=== PATIENT | male | born 1985 | race Caucasian/White ===

== ENCOUNTER 2018-10-08 20:50 | Emergency (ER) | payer OTHER ==
[2018-10-08 21:03] VITALS: TEMP 98.7; BMI 25.0
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
[2018-10-08] MEDS ORDERED: ACETAMINOPHEN 1000 MG/100 ML VIAL (NON FORMULARY) IVPB ONE (22:32)
[2018-10-08] MEDS ORDERED: morphine SULFATE 4 MG/ML VIAL IVPUSH ONE (22:45)
[2018-10-08] MEDS ORDERED: morphine SULFATE 4 MG/ML VIAL ONE (22:49)
[2018-10-08] MEDS: SODIUM CHLORIDE 1,000 ML IV SCH ×2 (23:05→23:15)
[2018-10-08] MEDS ORDERED: SODIUM CHLORIDE 1,000 ML IV SCH (23:12)
[2018-10-08 23:17] LABS: BASO % 0.5 % (0-2.0); EOS % 0.6 % (0-4.5); HEMATOCRIT 39.7 % (35.4-49); HEMOGLOBIN 13.7 GM/dL (11.7-16.9); LYMPH % 11.9 % (8-40); MCH 32.3 pg (25.7-33.7); MCHC 34.4 g/dl (32.0-35.9); MEAN CELL VOLUME 93.8 fl (80-96); MEAN PLT VOLUME 6.9 fl (7.5-11.1); MONO % 6.5 % (3.8-10.2); NEUT % 80.5 % (42.8-82.8); PLATELET COUNT 263 K/MM3 (134-434); RBC 4.24 M/mm3 (4.00-5.60); WHITE BLOOD COUNT 11.6 K/mm3 (4.0-10.0)
[2018-10-08 23:33] LABS: INR 1.11 (0.83-1.09); PROTHROMBIN TIME (PATIENT) 13.1 SEC (9.7-13.0)
[2018-10-08 23:35] LABS: ACTIVATED PTT 34.2 SECONDS (25.2-36.5)
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
[2018-10-08 23:51] LABS: ALBUMIN 3.8 g/dl (3.4-5.0); ALK PHOS 78 U/L (45-117); ANION GAP 6 MMOL/L (8-16); BILIRUBIN,TOTAL 0.4 mg/dL (0.2-1); BLOOD UREA NITROGEN 14 mg/dL (7-18); CALCIUM 8.7 mg/dL (8.5-10.1); CHLORIDE 105 mmol/L (98-107); CO2 27 mmol/L (21-32); CREATININE 0.7 mg/dL (0.55-1.3); GLUCOSE,RANDOM 108 mg/dL (74-106); POTASSIUM 3.8 mmol/L (3.5-5.1); SGOT/AST 25 U/L (15-37); SGPT/ALT 28 U/L (13-61); SODIUM 137 mmol/L (136-145); TOT PROT 8.7 g/dl (6.4-8.2)
[2018-10-09] MEDS ORDERED: HYDROmorphone HCL CARPU-JECT 2 MG/1 ML DISP.SYRIN IVPUSH ONE
[2018-10-09 00:04] VITALS: BP 132/84; PULSE 87
[2018-10-09] MEDS ORDERED: HYDROmorphone HCl 2 MG/ML VIAL ONE (00:06)
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
== END 2018-10-09 03:20 | disposition short-term general hospital (02) ==
LOC: JER 20:50
PROC: 3E033NZ Introduction of Analgesics, Hypnotics, Sedatives into Peripheral Vein, Percutaneous Approach (ICD-10-PCS; principal; 2018-10-08)
PROC: 3E033NZ Introduction of Analgesics, Hypnotics, Sedatives into Peripheral Vein, Percutaneous Approach (ICD-10-PCS; 2018-10-08)
DX: S02.69XA Fracture of mandible of other specified site, initial encounter for closed fracture (principal); Y04.2XXA Assault by strike against or bumped into by another person, initial encounter; Y93.89 Activity, other specified; Y92.480 Sidewalk as the place of occurrence of the external cause; Y99.8 Other external cause status; Y07.9 Unspecified perpetrator of maltreatment and neglect
CPT/HCPCS: 36415; 70450-TC; 70486-TC; 71045-TC-FY; 72125-TC; 72128-TC; 72131-TC; 80053; 85025; 85610; 85730; 99283-25; J7030